=== PATIENT | male | born 1995 | race African-American/Black ===

== ENCOUNTER 2018-11-23 23:20 | Emergency (ER) | payer MEDICAID ==
[~2018-11-23] VITALS: Ht 177.8 cm; Wt 64.0 kg
[2018-11-24] MEDS ORDERED: IBUPROFEN 400MG TABLET PO ONE (01:00)
[2018-11-24 01:08] VITALS: BP 110/72
== END 2018-11-24 00:56 | disposition home or self-care (01) ==
LOC: ER 23:20
DX: H66.92 Otitis media, unspecified, left ear (principal)
CPT/HCPCS: 99283